=== PATIENT | female | born 1990 | race Caucasian/White ===

== ENCOUNTER 2017-04-13 18:58 | Emergency (ER) | payer BC ==
[2017-04-13 19:16] VITALS: BP 119/63
[2017-04-13] MEDS ORDERED: Albuterol/Ipratropium NEB.SOL* Albuterol 2.5 MG/Ipratropium 0.5 MG 3 ML INH ONE (21:47)
--- NOTE | 2017-04-13 22:34 | ED ---
Asthma - HPI Summary HPI Summary: 26 female presents to ED with complaints of having tightness and wheezing while leaving work today. Patient states she has asthma and has an inhaler however she forgot it and did not have it with her, which is why she came here. No chest pain, coughing, fever or significant trouble breathing. Her breathing just began to feel tight so she got nervous. States she her inhaler hasn't been helping her that much and has an appointment to discuss with primary care provider. No other complaints at this time. No PMHx other than asthma. - History of Current Complaint Chief Complaint: EDAsthma Stated Complaint: SOB Time Seen by Provider: 04/13/17 21:11 Hx Obtained From: Patient Hx Last Menstrual Period: 2 WEEKS AGO Onset/Duration: Sudden Onset, Lasting Hours, Still Present, Resolved Timing: Constant Current Severity: None Pain Intensity: 0 Pain Scale Used: 0-10 Numeric Location/Character: Other - none Alleviating Symptoms: Inhalers/Nebulizers Associated Signs and Symptoms: Negative: Calf Pain, Edema, Sinus Infection - Allergy/Home Medications Allergies/Adverse Reactions: Allergies Allergy/AdvReac Type Severity Reaction Status Date / Time No Known Allergies Allergy Verified 03/05/16 17:10 PMH/Surg Hx/FS Hx/Imm Hx Endocrine/Hematology History: Denies: Hx Diabetes, Hx Thyroid Disease Cardiovascular History: Denies: Hx Hypertension Respiratory History: Reports: Hx Asthma Denies: Hx Chronic Obstructive Pulmonary Disease (COPD) GI History: Denies: Hx Ulcer - Surgical History Surgery Procedure, Year, and Place: none - Immunization History Immunizations Up to Date: Yes Infectious Disease History: No Infectious Disease History: Denies: Hx Hepatitis, Hx Human Immunodeficiency Virus (HIV), Traveled Outside the [place] in Last 30 Days - Family History Known Family History: Positive: None Family History: no family history of bleeding disorders - Social History Alcohol Use: None Substance Use Type: Reports: None Smoking Status (MU): Never Smoked Tobacco Review of Systems Constitutional: Negative Cardiovascular: Negative Positive: Other - asthma , wheezing, tightness Musculoskeletal: Negative Neurological: Negative All Other Systems Reviewed And Are Negative: Yes Physical Exam Triage Information Reviewed: Yes Vital Signs On Initial Exam: Initial Vitals Temp Pulse Resp BP Pulse Ox 97.5 F 63 16 119/63 100 04/13/17 19:13 04/13/17 19:13 04/13/17 19:13 04/13/17 19:13 04/13/17 19:13 not hypoxic Vital Signs Reviewed: Yes Appearance: Positive: Well-Appearing, No Pain Distress, Well-Nourished Skin: Positive: Warm, Skin Color Reflects Adequate Perfusion, Dry. Negative: Cold, Soft, Cyanosis @, Pale, Erythema @ Head/Face: Positive: Normal Head/Face Inspection Eyes: Positive: Conjunctiva Clear ENT: Positive: Hearing grossly normal, Pharynx normal, Other - airway patent Neck: Positive: Supple, Nontender Respiratory/Lung Sounds: Positive: Clear to Auscultation, Breath Sounds Present. Negative: Rales, Rhonchi, Wheezes Cardiovascular: Positive: Normal, RRR, Pulses are Symmetrical in both Upper and Lower Extremities. Negative: Murmur, Rub Abdomen Description: Positive: Nontender Bowel Sounds: Positive: Present Musculoskeletal: Positive: Normal, Strength/ROM Intact Neurological: Positive: Normal, Sensory/Motor Intact, Alert, Oriented to Person Place, Time, CN Intact II-III, Reflexes Intact, NV Bundle Intact Distally, Normal Gait Psychiatric: Positive: Affect/Mood Appropriate - Loy Coma Scale Coma Scale Total: 15 Diagnostics - Vital Signs Vital Signs Temp Pulse Resp BP Pulse Ox 04/13/17 22:01 16 100 04/13/17 19:13 97.5 F 63 16 119/63 100 - Laboratory Lab Statement: Any lab studies that have been ordered have been reviewed, and results considered in the medical decision making process. Re-Evaluation - Re-Evaluation First Eval Re-Evaluation Time: 22:30 Change: Improved - patient had significant relief after duoneb, ready to be d/c Asthma Course/Dx - Course Course Of Treatment: due to HPI, PE findings and normal vitals no further imaging or lab work was obtained. Duoneb administered patient had relief. Patient was feeling much better. Asked to have script for nebulizer machine. Aware of worsening signs and symptoms. Follow up with PCP and discuss inhaler. Continue use. No concern for any other emergent etiology at this time. No wheezing and not hypoxic. Given script for nebulizer. - Diagnoses Differential Diagnosis/HQI/PQRI: Positive: Acute Asthma, Bronchitis, COPD Excerbation Provider Diagnoses: Asthma Discharge - Discharge Plan Condition: Stable Disposition: HOME Prescriptions: Albuterol 2.5MG/3ML (0.083%)* [Ventolin 2.5 MG/3 ML NEB.PRECIOUS*] 2.5 mg INH Q4H PRN #30 neb.precious PRN Reason: Wheezing Patient Education Materials: Asthma (ED), How to Use a Nebulizer (ED) Referrals: Zulma Vidal MD [Primary Care Provider] - Additional Instructions: Continue to use your prescribed inhaler. Use nebulizer machine as directed as needed for times of tightness, wheezing, SOB. The medication for nebulizer machine is at [facility]. Take prescription to pharmacy to try and get a nebulizer machine. Follow up with primary care provider. New symptoms or worsening symptoms please return.
== END 2017-04-13 22:57 | disposition home or self-care (01) ==
LOC: ED 18:58
DX: J45.901 Unspecified asthma with (acute) exacerbation (principal)
CPT/HCPCS: 94640; 99282; A9270-GY

== ENCOUNTER 2017-11-04 19:22 | Emergency (ER) | payer SELFPAY ==
[2017-11-04] MEDS ORDERED: Ketorolac INJ* 30 MG/ML 1 ML VIAL IV PUSH ONE (19:39)
[2017-11-04] MEDS ORDERED: Metoclopramide IV* 5 MG/ML 2 ML VIAL IV SLOW PU ONE (19:39)
[2017-11-04] MEDS ORDERED: diPHENhydraMINE IV* 50 MG/ML 1 ml VIAL (BENADRYL) IV ONE (19:40)
[2017-11-04] MEDS ORDERED: NS 0.9% 1000 ML* 1,000 ML IV ONE (19:40)
[2017-11-04 21:16] VITALS: BP 116/60
--- NOTE | 2017-11-04 21:38 | ED ---
Ruben Hays Thomas, scribed for Earl Live MD on 11/04/17 at 1951 . Asthma - HPI Summary HPI Summary: The patient is a 27 year old female with a history of asthma. Earlier today, the patient had a headache and was feeling short of breath. The patient was unable to find her inhaler during an episode of shortness of breath, and she reports passing out. She treated her symptoms with naproxen and her albuterol inhaler. She complains of a tingling sensation in her extremities. - History of Current Complaint Stated Complaint: ASTHMA PROBLEM Time Seen by Provider: 11/04/17 19:32 Hx Obtained From: Patient Hx Last Menstrual Period: 2 WEEKS AGO Onset/Duration: Lasting Hours, Still Present Timing: Constant Initial Severity: Moderate Current Severity: Mild Aggravating Symptoms: Nothing Alleviating Symptoms: Inhalers/Nebulizers, Other - Naproxen Associated Signs and Symptoms: Positive: Shortness of Breath, Other - Headache, tingling sensation in extremities - Allergy/Home Medications Allergies/Adverse Reactions: Allergies Allergy/AdvReac Type Severity Reaction Status Date / Time No Known Allergies Allergy Verified 03/05/16 17:10 PMH/Surg Hx/FS Hx/Imm Hx Endocrine/Hematology History: Denies: Hx Diabetes, Hx Thyroid Disease Cardiovascular History: Denies: Hx Hypertension Respiratory History: Reports: Hx Asthma Denies: Hx Chronic Obstructive Pulmonary Disease (COPD) GI History: Denies: Hx Ulcer Psychiatric History: Denies: Hx Anxiety, Hx Panic Disorder - Surgical History Surgery Procedure, Year, and Place: none Infectious Disease History: Denies: Hx Hepatitis, Hx Human Immunodeficiency Virus (HIV), Traveled Outside the [place] in Last 30 Days - Family History Family History: no family history of bleeding disorders - Social History Alcohol Use: None Substance Use Type: Reports: None Smoking Status (MU): Never Smoked Tobacco Review of Systems Positive: Shortness Of Breath Neurological: Other - LOC, tingling Positive: Headache All Other Systems Reviewed And Are Negative: Yes Physical Exam - Summary Physical Exam Summary: VITAL SIGNS: Reviewed. GENERAL: Patient is a well-developed and nourished female who is lying comfortable in the stretcher. Patient is not in any acute respiratory distress. She appears somewhat anxious and is shaky. HEAD AND FACE: No signs of trauma. No ecchymosis, hematomas or skull depressions. No sinus tenderness. EYES: PERRLA, EOMI x 2, No injected conjunctiva, no nystagmus. EARS: Hearing grossly intact. Ear canals and tympanic membranes are within normal limits. MOUTH: Oropharynx within normal limits. NECK: Supple, trachea is midline, no adenopathy, no JVD, no carotid bruit, no c- spine tenderness, neck with full ROM. CHEST: Symmetric, no tenderness at palpation LUNGS: Clear to auscultation bilaterally. No wheezing or crackles. CVS: Regular rate and rhythm, S1 and S2 present, no murmurs or gallops appreciated. ABDOMEN: Soft, non-tender. No signs of distention. No rebound no guarding, and no masses palpated. Bowel sounds are normal. EXTREMITIES: FROM in all major joints, no edema, no cyanosis or clubbing. NEURO: Alert and oriented x 3. No acute neurological deficits. Speech is normal and follows commands. She is shaky. SKIN: Dry and warm Triage Information Reviewed: Yes Vital Signs Reviewed: Yes Re-Evaluation - Re-Evaluation First Eval Re-Evaluation Time: 21:02 Change: Improved Comment: She feels better. Her lungs are clear. Her headache is gone, and she would like to go home. Asthma Course/Dx - Course Assessment/Plan: The patient is a 27 year old female with a history of asthma. Earlier today, the patient had a headache and was feeling short of breath. The patient was unable to find her inhaler during an episode of shortness of breath , and she reports passing out. In the ED course, the patient was given Benadryl , Toradol, Reglan, and IV fluids. At re-evaluation, the patients lungs are clear. She feels better and would like to go home. The patient is diagnosed with headache. The patient will be discharged home to follow up with primary care. - Diagnoses Provider Diagnoses: Headache Discharge - Sign-Out/Discharge Documenting (check all that apply): Discharge/Admit/Transfer - Discharge Plan Condition: Stable Disposition: HOME Patient Education Materials: General Headache (ED) Referrals: Zulma Vidal MD [Primary Care Provider] - 3 Days Additional Instructions: Follow up with your primary care physician in three days. Return to the emergency department for any new or worsening symptoms. The documentation as recorded by the Ruben joyner Thomas accurately reflects the service I personally performed and the decisions made by me, Earl Live MD.
== END 2017-11-04 21:15 | disposition home or self-care (01) ==
LOC: ED 19:22
DX: R51 Headache (principal); J45.909 Unspecified asthma, uncomplicated; R06.02 Shortness of breath
CPT/HCPCS: 96374; 96375; 99283; J1200; J1885; J2765

== ENCOUNTER 2018-04-08 21:09 | Emergency (ER) | payer OTHER ==
[2018-04-08 21:18] VITALS: BP 116/72
--- NOTE | 2018-04-08 21:32 | ED ---
Dizziness - History Of Current Complaint Chief Complaint: EDNauseaVomitDiarrh Stated Complaint: CHEST/BLOOD IN VOMIT - Allergies/Home Medications Allergies/Adverse Reactions: Allergies Allergy/AdvReac Type Severity Reaction Status Date / Time No Known Allergies Allergy Verified 04/08/18 21:18 PMH/Surg Hx/FS Hx/Imm Hx Endocrine/Hematology History: Denies: Hx Diabetes, Hx Thyroid Disease Cardiovascular History: Denies: Hx Hypertension Respiratory History: Reports: Hx Asthma Denies: Hx Chronic Obstructive Pulmonary Disease (COPD) GI History: Denies: Hx Ulcer Psychiatric History: Denies: Hx Anxiety, Hx Panic Disorder - Surgical History Surgery Procedure, Year, and Place: none Infectious Disease History: No Infectious Disease History: Denies: Hx Hepatitis, Hx Human Immunodeficiency Virus (HIV), Traveled Outside the [place] in Last 30 Days - Family History Known Family History: Positive: None Family History: no family history of bleeding disorders - Social History Alcohol Use: None Substance Use Type: Reports: None Smoking Status (MU): Never Smoked Tobacco Physical Exam Vital Signs On Initial Exam: Initial Vitals Temp Pulse Resp BP Pulse Ox 98.0 F 84 16 116/72 97 04/08/18 21:10 04/08/18 21:10 04/08/18 21:10 04/08/18 21:10 04/08/18 21:10 Diagnostics - Vital Signs Vital Signs Temp Pulse Resp BP Pulse Ox 04/08/18 21:10 98.0 F 84 16 116/72 97 - Laboratory Lab Statement: Any lab studies that have been ordered have been reviewed, and results considered in the medical decision making process. Discharge - Discharge Plan Referrals: Zulma Vidal MD [Primary Care Provider] - - Attestation Statements Document Initiated by Julissaibitz: Yes
[2018-04-08] MEDS ORDERED: Sucralfate TAB* 1 GM PO ONE (21:33)
--- NOTE | 2018-04-08 21:38 | ED ---
HPI Chest Pain - HPI Summary HPI Summary: The pt is a 27 y/o female presenting to [facility] c/o CP since 1900 one day ago worsening today. She notes nausea, vomiting (with blood), dizziness, difficulty concentrating, and loss of balance. She notes a hx of asthma but denies a hx of GERD or Reflux. - History of Current Complaint Chief Complaint: EDNauseaVomitDiarrh Hx Obtained From: Patient Hx Last Menstrual Period: 2 WEEKS AGO Onset/Duration: Started Days Ago - 1 day Pain Intensity: 3 - Allergy/Home Medications Allergies/Adverse Reactions: Allergies Allergy/AdvReac Type Severity Reaction Status Date / Time No Known Allergies Allergy Verified 04/08/18 21:18 PMH/Surg Hx/FS Hx/Imm Hx Previously Healthy: No Endocrine/Hematology History: Denies: Hx Diabetes, Hx Thyroid Disease Cardiovascular History: Denies: Hx Hypertension Respiratory History: Reports: Hx Asthma Denies: Hx Chronic Obstructive Pulmonary Disease (COPD) GI History: Reports: Other GI Disorders - Denies hx of reflux dx Denies: Hx Gastroesophageal Reflux Disease, Hx Ulcer Sensory History: Denies: Hx Deafness Opthamlomology History: Denies: Hx Legally Blind Psychiatric History: Denies: Hx Anxiety, Hx Panic Disorder - Surgical History Surgery Procedure, Year, and Place: none Infectious Disease History: No Infectious Disease History: Denies: Hx Hepatitis, Hx Human Immunodeficiency Virus (HIV), Traveled Outside the [place] in Last 30 Days - Family History Known Family History: Negative: Blood Disorder - Social History Lives: Alone Alcohol Use: None Substance Use Type: Reports: None Smoking Status (MU): Never Smoked Tobacco Review of Systems Constitutional: Other - Positive: Dizziness, difficulty concentrating, loss of balance Positive: Vomiting, Nausea All Other Systems Reviewed And Are Negative: Yes Physical Exam - Summary Physical Exam Summary: Appearance: Well-appearing, Well-nourished, lying in bed comfortably Skin: Warm, dry, no obvious rash Eyes: sclera anicteric, no conjunctival pallor; No nystagmus ENT: mucous membranes moist, pharynx appears normal Neck: Supple, nontender Respiratory: Clear to auscultation, no signs of respiratory distress Cardiovascular: Normal S1, S2. No murmurs. Normal distal pulses in tibial and radial bilaterally. Abdomen: Soft, nontender, normal active bowel sounds present Musculoskeletal: Normal, Strength/ROM Intact, Motor function in all 4 extremities is normal and symmetric. There is no rigidity or tremor noted. Neurological: A&Ox3, awake and alert, mentation is normal, speech is fluent and appropriate, Level of consciousness nml. The patient is alert and oriented. Cranial nerves are grossly intact. Gaze is conjugate and without nystagmus. Peripheral vision is intact to confrontation. There are no gross sensory abnormalities to light touch. There is no truncal or fine motor ataxia. Gait is normal. Psychiatric: affect is normal, does not appear anxious or depressed Triage Information Reviewed: Yes Vital Signs On Initial Exam: Initial Vitals Temp Pulse Resp BP Pulse Ox 98.0 F 84 16 116/72 97 04/08/18 21:10 04/08/18 21:10 04/08/18 21:10 04/08/18 21:10 04/08/18 21:10 Vital Signs Reviewed: Yes Diagnostics - Vital Signs Vital Signs Temp Pulse Resp BP Pulse Ox 04/08/18 21:10 98.0 F 84 16 116/72 97 - Laboratory Lab Statement: Any lab studies that have been ordered have been reviewed, and results considered in the medical decision making process. - EKG 21:23 Cardiac Rate: NL - 73 bpm EKG Rhythm: Sinus Rhythm EKG Interpretation: This is a normal EKG Chest Pain Course/Dx - Course Course Of Treatment: A 27 year-old F presents to the ED with a CC of CP since 1900 one day ago worsening today. She notes nausea, vomiting (with blood), dizziness, difficulty concentrating, and loss of balance. She notes a hx of asthma but denies a hx of GERD or Reflux.A physical exam and EKG are unremarkable. Patient will be discharged with a final Dx of esophagitis with a referral to a maintenance and repair worker. Pt is agreeable with this plan. Allergies noted. - Diagnoses Provider Diagnoses: Esophagitis Discharge - Sign-Out/Discharge Documenting (check all that apply): Patient Departure - DC - Discharge Plan Condition: Good Disposition: HOME Prescriptions: Sucralfate TAB* [Carafate*] 1 gm PO ACHS #420 ml Patient Education Materials: Esophagitis (ED) Referrals: Marvin Gary MD [Medical Doctor] - 3 Days Additional Instructions: Your chest pain appears to be coming as an aftereffect of all the vomiting yesterday with consequent injury and irritation to the esophagus. This generally heals well on its own but may continue to bother you for a week and perhaps up to 2. I have prescribed the Carafate which should be taken 4 times a day before meals. If her symptoms are getting worse, or do not resolve after 2 weeks, you will probably need to have an endoscopy done, so contact the maintenance and repair worker in the discharge instructions. - Billing Disposition and Condition Condition: GOOD Disposition: Home - Attestation Statements Document Initiated by Cain: Yes Documenting Julissaibe: Pam Bowman Provider For Whom Cain is Documenting (Include Credential): Dr. Foster Elkins MD Scribe Attestation: I, Pam Bowman , julissaibed for Dr. Foster Elkins MD on 04/09/18 at 1529. Scribe Documentation Reviewed: Yes Provider Attestation: The documentation as recorded by the Pam joyner accurately reflects the service I personally performed and the decisions made by me, Dr. Foster Elkins MD
== END 2018-04-08 21:55 | disposition home or self-care (01) ==
LOC: ED 21:09
DX: K20.9 Esophagitis, unspecified (principal); R11.2 Nausea with vomiting, unspecified; R42 Dizziness and giddiness
CPT/HCPCS: 93005; 99282; A9270-GY